=== PATIENT | male | born 1935 | race Caucasian/White ===

== ENCOUNTER 2023-03-13 17:00 | Emergency (ER) | payer MEDICARE, BC, SELFPAY ==
[2023-03-13 17:04] VITALS: BP 158/82
--- NOTE | 2023-03-13 18:15 | ED.GENMED ---
History of Present Illness
General
Chief Complaint: Back Pain
Source: patient
Exam Limitations: none
Time Seen by Provider: 03/13/23 17:51
Travel History
Have you had any contact with someone who has COVID-19?: No
Do you have any symptoms of coronavirus? Fever > 100 degrees, chills, cough, shortness of breath, sore throat, loss of taste or smell, muscle aches, or headache?: No
History of Present Illness
History of Present Illness:
This is a 87 year old male that comes in with c/o left leg and foot pain. State that he is having a hard time walking. state that he has pain in the back that is more on the left then the right. States that the leg feels numb and that there is
increased heat in the thighs in both legs. States that this started a month ago and has gotten worse. states that the PCP told him to come to the ER. Denies any fever, chills, chest pain, SOB, abd pain, nausea, vomiting, diarrhea, headache,
dizziness, urinary burning.
Past History
Past History
ED Past Medical History: Arrthythmia (afib), Cancer (Skin CA), GERD, HTN, Hypercholesterolemia, Hypothyroidism and Other (Rheumatoid arthritis, gout, Sleep apnea occasionally uses CPAP)
ED Past Surgical History: Cholecystectomy and Orthopedic (Back surgery x 2 , Foot surgery with pins, )
Social History
Tobacco: Former smoker
Alcohol: Former
Personal:
Living: with family
Review of Systems
Review of Systems
All Other Systems: ROS reviewed and negative except as documented in HPI and ROS
Constitutional: Reports no symptoms; Denies fever or chills
EENT: Reports no symptoms
Respiratory: Reports no symptoms; Denies cough or trouble breathing
Cardiac: Reports no symptoms; Denies chest pain
ABD/GI: Reports no symptoms; Denies abdominal pain, nausea, vomiting or diarrhea
: Reports no symptoms; Denies dysuria, frequency or urgency
Musculoskeletal: Reports back pain (Low back more to the left with numbness in the left leg and burning in bilateral thighs)
Skin: Reports no symptoms
Neurological: Reports no symptoms; Denies dizzy or headache
Psychiatric: Reports no symptoms
Phy Exam
General Physical Exam
General Presentation: no apparent distress
General age: appears stated age
General Skin: warm and dry
General Habitus: elderly
General Mental: alert
General Hydration: appears well hydrated
ENT Exam
ENT Exam: TM's normal, pharynx normal and neck supple
Eye Exam
Eye Exam: EOMI
Cardiovascular Exam
Cardiovascular Exam: regular rate/rhythm and normal peripheral pulses
Pulmonary Exam
Pulmonary Exam: lungs clear, no respiratory distress, no rales, chest non tender, no crackles, no rhonchi, no wheezing and no cough
Gastrointestinal Exam
Gastrointestinal Exam: normal bowel sounds, non tender, soft, no organomegaly, no pulsatile mass and non distended
Musculoskeletal Exam
Musculoskeletal Exam: full ROM, edema (left leg slightly more swollen then right. Sensation slightly decreased bilateral legs but able to feel pin prick. Normal pulses) and other (Negative for spinal tenderness with palpation or hip tenderness. )
Skin Exam
Skin Exam: normal color, warm/dry, no rash and no petechia
Psychiatric Exam
Psychiatric Exam: normal mood/affect
Course
Orders/Labs/Results
Orders:
Orders
03/13/23 18:15
CT Lumbar Spine W/o Iv Contras Urgent
Comment:
Reason For Exam: Low back pain more left sided
Hip, Left 2-3 Views [CR Hip - LT w/wo Pel 2-3 Vw*] Urgent
Comment:
Reason For Exam: Left hip pain
Include a pelvis x-ray?: Yes
US Legs, Bilateral [US Periph Venous LOWER Ext Nawaf] Urgent
Comment:
Reason For Exam: Burning in hips and with pain left with swelling
03/13/23 18:36
CPK [Creatine Phosphokinase] Urgent
CRP [C-Reactive Protein] Urgent
Complete Blood Count/With Diff Urgent
Comprehensive Metabolic Panel Urgent
Sed Rate [Erythrocyte Sed Rate] Urgent
Abnormal Lab Results
03/13/23
18:36
RBC 4.14 L 10^6/uL
(4.70-6.10)
MCV 98.1 H fL
(80.0-94.0)
MCH 34.8 H pg
(27.0-31.0)
Absolute Monos (auto) 1.2 H 10^3/uL
(0.1-0.6)
Monocytes % 14.6 H %
(1.7-9.3)
ESR 24 H mm/hour
(0-20)
Glucose 116 H mg/dl
(70-99)
03/13/23 18:36
03/13/23 18:36
Sed rate slightly elevated adjust for age, Glucose nonfasting. CRP normal <5.0.
Vital Signs
Initial and Last Documented VS:
Initial Vital Signs
Temp Pulse Resp BP Pulse Ox
97.6 F 68 18 158/82 97
03/13/23 17:04 03/13/23 17:04 03/13/23 17:04 03/13/23 17:04 03/13/23 17:04
Last Documented Vital Signs
Temp Pulse Resp BP Pulse Ox
97.6 F 68 18 149/80 97
03/13/23 17:04 03/13/23 17:04 03/13/23 17:04 03/13/23 20:00 03/13/23 20:15
MDM/Problems Addressed
Differential Diagnosis Includes:
Degenerative disc disease, neuropathy,
MDM/Problems Addressed:
This is a 87 year old male that comes in with c/o low back pain that is more on the left and into the hip. States that he has burning in both thighs and pain in the left leg. States that this has been going on for a month. State that he has some
numbenss in the left leg.
Will check labs. CT lumbar spine and US bilateral legs.
Back into see patient. Explained that her blood work is normal along with his Ultrasound. CT shows degenerative changes. Encouraged patient to follow up with the pc support specialist for further evaluation. Patient to use Tylenol arthritis for
pain. Patient to return with any concerns.
Chronic conditions affecting care: Other (back surgery, RA)
Acute Exacerbation and/or Progression of Chronic Illness:
Back surgery
*Radiology
Radiology exam reviewed: preliminary read by ED provider (left hip/pelvis- Negative for fracture or dislocation. ), radiology read reviewed (US-No sonographic evidence for lower extremity venous thrombosis Left hip-Moderate bilateral hip
osteoarthritis. Stable. 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 Progressed all levels. lumbar spine moderate levoscoliosis. Stable. ) and other (CT cont- diverticulosis. Stable. )
*Pulse Oximetry
Patient hypoxic: no
*EKG
Interpreted by ED Provider?: NA
Rate: EKG- N/A
*High Speed Warper Tender Interpretation
Rate: High Speed Warper Tender- N/A
*Critical Care Note
Total Time (30-74mins, 75-104mins- exclusive of procedures): Not Applicable
ED Attending Note
-
Portions of this chart may have been created with voice recognition software.� Occasional wrong word or��sound alike� substitutions may have occurred due to the inherent limitations of voice recognition software.
Discharge Plan
Departure
Patient Disposition: Home (Routine Discharge)
Date of Disposition: 03/13/23
Time of Disposition: 21:30
Patient with high blood pressure during this ER visit?: Yes
Condition: Good
Covid-19: Not Applicable
Discharge Problem:
Low back pain
Instructions: Low Back Pain (DC), BLOOD PRESSURE
Prescriptions:
No Action
atorvastatin 10 MG tablet
5 mg PO QPM
methotrexate sodium 2.5 MG tablet
7.5 mg PO WE
levothyroxine 125 MCG tablet
125 mcg PO DAILY
febuxostat 40 MG tablet
40 mg PO Q48H
metoprolol tartrate 12.5 MG tablet
12.5 mg PO BID Qty: 30 11RF
Rx Instructions:
Take Lopressor (metoprolol tartrate) 12.5 mg (1/2 of a 25 mg tablet) twice a day
apixaban [Eliquis] 5 MG tablet
5 mg PO BID Qty: 60 11RF
folic acid 1 MG tablet
1 mg PO .PRN EVERY OTHER DAY PRN (Reason: .)
esomeprazole magnesium [Nexium] 20 MG capsule,delayed release(DR/EC)
20 mg PO Q48H
acetaminophen 325 MG tablet
325 mg PO BID PRN (Reason: pain)
Referrals:
Luciano Brewer MD [Active] - Follow up in 2-3 days
NONE,* [Active] -
Activity Restrictions/Additional Instructions:
As discussed, your blood work is normal. Your Ultrasound is normal and your CT shows degenerative changes. You will need further evaluation with the pc support specialist. You may use Tylenol arthritis which is the max amount of Tylenol you can take
to help control your pain. IF YOU HAVE ANY OTHER CONCERNS PLEASE RETURN TO THE EMERGENCY ROOM .
Interventions
Interventions:
*Risk Screen - Suicide Last Done: 03/13/23 18:19
*General Assessment Last Done: 03/13/23 18:19
*Neglect/Abuse Screening Last Done: 03/13/23 18:19
ED- Fall Risk Assessment Last Done: 03/13/23 18:19
*ED COVID-19 Vaccine History Last Done: 03/13/23 17:04
ED-Musculoskeletal Assessment Last Done: 03/13/23 18:19
[2023-03-13 18:19] VITALS: BP 158/73; BMI 32.0
[2023-03-13 18:49] LABS: % Basophils 0.7 % (0-2); % Eosinophils 3.5 % (0-6); % Immature Granulocytes 0.4 % (0-0.5); % Lymphocytes 31.5 % (20.5-51.1); % Monocytes 14.6 % (1.7-9.3); % Neutrophils 49.3 % (42.2-75.2); Absolute Basophils 0.1 10^3/uL (0-0.2); Absolute Eosinophils 0.3 10^3/uL (0-0.7); Absolute Lymphocytes 2.5 10^3/uL (1.2-3.4); Absolute Monocytes 1.2 10^3/uL (0.1-0.6); Hematocrit 40.6 % (39.0-52.0); Hemoglobin 14.4 g/dL (13.0-18.0); Mean Corp Hgb Conc. 35.5 g/dL (33.0-37.0); Mean Corpuscular Hgb 34.8 pg (27.0-31.0); Mean Corpuscular Volume 98.1 fL (80.0-94.0); Mean Platelet Volume 9.8 fL (7.4-10.4); Nucleated Red Blood Cells % 0 % (-); Platelet Count 240 10^3/uL (130-400); Red Blood Cell Count 4.14 10^6/uL (4.70-6.10); Red Cell Dist. Width 13.9 % (11.5-14.5)
[2023-03-13 18:59] LABS: ALT (SGPT) 24 U/L (0-50); AST (SGOT) 38 U/L (17-59); Alkaline Phosphatase 60 U/L (38-126); Blood Urea Nitrogen 20 mg/dl (9-20); Calcium 9.8 mg/dl (8.4-10.2); Carbon Dioxide 26 mmol/L (22-30); Chloride 102 mmol/L (98-107); Estimated Creatinine Clearance 58 ml/min; Glucose 116 mg/dl (70-99); Potassium 4.6 mmol/L (3.5-5.1); Sodium 138 mmol/L (135-145); Total Bilirubin 0.7 mg/dl (0.2-1.3); Total Protein 6.9 g/dl (6.3-8.2); eGFR > 60.00
[2023-03-13 19:00] VITALS: BP 159/91
[2023-03-13 19:00] LABS: Creatine Phosphokinase 136 U/L (55-170)
[2023-03-13 19:04] LABS: C-Reactive Protein < 5.00 mg/L (0.0-10.00)
[2023-03-13 19:07] LABS: Erythrocyte Sed Rate 24 mm/hour (0-20)
[2023-03-13 20:00] VITALS: BP 149/80
[2023-03-13 21:00] VITALS: BP 132/108
[2023-03-13] MEDS: TYLENOL 1000 MG PO (21:36)
== END 2023-03-13 21:57 | disposition home or self-care (01) ==
LOC: EMR 17:00
PROVIDERS: Clinical Nurse Specialist Family Health; EMERGENCY PHYSICIAN Emergency Medicine; FAMILY PHYSICIAN Family Medicine
DX: M54.50 Low back pain, unspecified (principal); M79.605 Pain in left leg; R20.0 Anesthesia of skin; M16.0 Bilateral primary osteoarthritis of hip; I48.91 Unspecified atrial fibrillation; I10 Essential (primary) hypertension; E78.00 Pure hypercholesterolemia, unspecified; E03.9 Hypothyroidism, unspecified; G47.30 Sleep apnea, unspecified; K21.9 Gastro-esophageal reflux disease without esophagitis; K57.90 Diverticulosis of intestine, part unspecified, without perforation or abscess without bleeding; M06.9 Rheumatoid arthritis, unspecified; M10.9 Gout, unspecified; Z79.01 Long term (current) use of anticoagulants; Z87.891 Personal history of nicotine dependence; Z85.828 Personal history of other malignant neoplasm of skin; Z90.49 Acquired absence of other specified parts of digestive tract
CPT/HCPCS: 99285; 72131; 73502; 80053; 82550; 85025; 85652; 86140; 93970